=== PATIENT | female | born 1995 | race Two or more races ===

== ENCOUNTER 2019-10-21 15:57 | Emergency (ER) | payer MEDICAID ==
[~2019-10-21] VITALS: Ht 154.9 cm; Wt 90.9 kg
[2019-10-21 17:35] VITALS: BP 120/63
== END 2019-10-21 17:42 | disposition home or self-care (01) ==
LOC: EMS 15:57
DX: F31.9 Bipolar disorder, unspecified (principal); F12.90 Cannabis use, unspecified, uncomplicated

== ENCOUNTER 2019-10-24 12:59 | Inpatient (IN) | payer MEDICAID ==
[~2019-10-24] VITALS: Ht 149.9 cm; Wt 98.6 kg
[2019-10-24 13:15] VITALS: BP 122/65
[2019-10-24] MEDS ORDERED: ZOLPIDEM TARTRATE 10 MG TABLET PO PRN (14:45)
[2019-10-24] MEDS ORDERED: MAG HYDROX/AL HYDROX/SIMETH ES 30 ML SUSPENSION UDCUP PO PRN (14:45)
[2019-10-24] MEDS ORDERED: OLANZapine 5 MG RAPDIS TABLET PO PRN (14:45)
[2019-10-24] MEDS ORDERED: TUBERCULIN, PURIFIED PROTEIN DERIVATIVE 5 TU/0.1 ML SYRINGE ID ONE (14:45)
[2019-10-24] MEDS ORDERED: GuaiFENesin/D-METHORPHAN [SUGAR-FREE] 200-20MG/10 ML SYRUP UDCUP PO PRN (14:45)
[2019-10-24] MEDS ORDERED: PROMETHAZINE HCL 25 MG TABLET PO PRN (14:45)
[2019-10-24] MEDS ORDERED: MAGNESIUM HYDROXIDE SUSPENSION 30 ML UDCUP PO PRN (14:45)
[2019-10-24] MEDS ORDERED: LOPERAMIDE HCL 2 MG CAPSULE PO PRN (14:45)
[2019-10-24] MEDS ORDERED: ACETAMINOPHEN 325 MG TABLET PO PRN (14:45)
[2019-10-24] MEDS ORDERED: HydrOXYzine PAMOATE 50 MG CAPSULE PO PRN (14:45)
[2019-10-24 14:55] VITALS: BP 105/85
[2019-10-24 15:06] VITALS: BP 105/85
[2019-10-24] MEDS ORDERED: LORazepam 2 MG/ML VIAL ONE (15:24)
[2019-10-24] MEDS ORDERED: DiphenhydrAMINE HCL 50 MG/ML VIAL ONE (15:24)
[2019-10-24] MEDS ORDERED: HALOPERIDOL LACTATE 5 MG/ML VIAL ONE (15:24)
[2019-10-24] MEDS ORDERED: LORazepam 2 MG/ML VIAL IM ONE (15:30)
[2019-10-24] MEDS ORDERED: HALOPERIDOL LACTATE 5 MG/ML VIAL IM ONE (15:30)
[2019-10-24] MEDS ORDERED: DiphenhydrAMINE HCL 50 MG/ML VIAL IM ONE (15:30)
[2019-10-24] MEDS: THIAMINE HCL 100 MG TABLET PO SCH (16:34)
[2019-10-24] MEDS: OLANZapine 10 MG RAPDIS TABLET PO SCH (21:00)
[2019-10-25 05:27] VITALS: BP 128/62
[2019-10-25 05:32] VITALS: BP 124/67
[2019-10-25] MEDS: LORazepam 2 MG TABLET PO PRN (08:07)
[2019-10-25] MEDS: THIAMINE HCL 100 MG TABLET PO SCH ×2 (08:07→16:33)
[2019-10-25] MEDS: FLUoxetine HCL 20 MG CAPSULE PO SCH (08:08)
[2019-10-25] MEDS: FOLIC ACID 1 MG TABLET PO SCH (08:08)
[2019-10-25] MEDS: MULTIVITAMINS WITH MINERALS, THERAPEUTIC TABLET PO SCH (08:08)
[2019-10-25 08:14] VITALS: BP 125/65
[2019-10-25 08:17] LABS: APPEARANCE,URINE CLOUDY (CLEAR); BILIRUBIN,URINE NEGATIVE (NEGATIVE); GLUCOSE, URINE (UA) NEGATIVE (NEGATIVE); KETONES,URINE TRACE mg/dL (NEGATIVE); LEUKOCYTE ESTERASE ,URINE NEGATIVE (NEGATIVE); NITRATE,URINE NEGATIVE (NEGATIVE); OCCULT BLOOD,URINE NEGATIVE (NEGATIVE); PROTEIN,URINE NEGATIVE (NEGATIVE); UROBILINOGEN,URINE 0.2 mg/dL (<=1.0)
[2019-10-25 08:18] LABS: BASOPHILS % (AUTO) 0.9 % (0.0-2.0); EOSINOPHILS % (AUTO) 4.8 % (1.0-6.0); HEMATOCRIT 42.5 % (36-46); HEMOGLOBIN 14.7 g/dL (12.0-16.0); LYMPHOCYTES # (AUTO) 2.4 K/uL (1.0-4.8); MEAN CORPUSCULAR HEMOGLOBIN 29.2 pg (26.0-34.0); MEAN CORPUSCULAR HGB CONC 34.6 G/dL (31.0-37.0); MEAN CORPUSCULAR VOLUME 84 fL (80-100); MONOCYTES # (AUTO) 0.6 K/uL (0.1-1.0); MONOCYTES % (AUTO) 6.8 % (2.0-9.0); NEUTROPHILS # (AUTO) 4.9 K/uL (1.8-7.7); NEUTROPHILS % (AUTO) 58.5 % (40.0-70.0); PLATELET COUNT (AUTO) 338 K/uL (150-450); RED BLOOD CELL COUNT(AUTO) 5.04 MIL/uL (4.00-5.20); RED CELL DISTRIBUTION WIDTH 15.2 % (11.5-14.5)
[2019-10-25 08:24] LABS: AMPHET/METH SCREEN,URINE NEGATIVE (NEGATIVE); BARBITURATE SCREEN, URINE NEGATIVE (NEGATIVE); BENZODIAZEPINES SCREEN,URINE NEGATIVE (NEGATIVE); CANNABINOID SCREEN,URINE POSITIVE (NEGATIVE); COCAINE SCREEN,URINE NEGATIVE (NEGATIVE); METHADONE SCREEN, URINE NEGATIVE (NEGATIVE); OPIATE SCREEN,URINE NEGATIVE (NEGATIVE); PHENCYCLIDINE SCREEN,URINE NEGATIVE (NEGATIVE)
[2019-10-25 08:33] LABS: HEMOGLOBIN A1C 5.5 % (3.8-5.6)
[2019-10-25 08:56] LABS: ALANINE AMINOTRANSFERASE 28 U/L (12-78); ALBUMIN 3.9 g/dL (3.4-5.0); ALKALINE PHOSPHATASE 58 U/L (46-116); ANION GAP 6 mmol/L (8-16); ASPARTATE AMINOTRANSFERASE 15 U/L (15-37); BILIRUBIN,TOTAL 0.6 mg/dL (0.1-1.0); CALCIUM, TOTAL 9.4 mg/dL (8.8-10.5); CARBON DIOXIDE 29 mmol/L (22-29); CHLORIDE 102 mmol/L (98-107); CHOL/HDL RATIO 2.1 (3.9-5.7); CHOLESTEROL 117 mg/dL (131-200); CREATININE 0.71 mg/dL (0.60-1.30); FREE T4 (FREE THYROXINE) 1.26 ng/dL (0.76-1.46); GLOMERULAR FILTR. RATE CALC > 60 mL/min (>60); GLUCOSE,RANDOM 85 mg/dL (70-110); HCG,QUANTITATIVE < 1 mIU/mL (0-6); HDL CHOLESTEROL 55 mg/dL (40-60); LDL CHOL (CALC.) 58 mg/dL (0-130); POTASSIUM 3.7 mmol/L (3.5-5.1); SODIUM SERUM 137 mmol/L (136-145); TOTAL PROTEIN, SERUM 8.1 g/dL (6.4-8.2); TRIGLYCERIDES 20 mg/dL (15-150); UREA NITROGEN, BLOOD 8 mg/dL (7-18)
[2019-10-25 16:27] VITALS: BP 106/65
[2019-10-25] MEDS: OLANZapine 10 MG RAPDIS TABLET PO SCH (20:38)
[2019-10-26 04:02] VITALS: BP 111/60
[2019-10-26] MEDS ORDERED: FLUO-191 PO ×2 (06:21→17:37)
[2019-10-26] MEDS ORDERED: NALT50TA6 PO (06:21)
[2019-10-26] MEDS ORDERED: OLAN10TA6 PO (06:22)
[2019-10-26 08:15] VITALS: BP 122/71
[2019-10-26] MEDS: NALTREXONE HCL 50 MG TABLET PO SCH (09:31)
[2019-10-26] MEDS: THIAMINE HCL 100 MG TABLET PO SCH ×2 (09:31→16:42)
[2019-10-26] MEDS: FLUoxetine HCL 20 MG CAPSULE PO SCH (09:31)
[2019-10-26] MEDS: MULTIVITAMINS WITH MINERALS, THERAPEUTIC TABLET PO SCH (09:31)
[2019-10-26] MEDS: FOLIC ACID 1 MG TABLET PO SCH (09:31)
[2019-10-26 16:33] VITALS: BP 127/68
[2019-10-26] MEDS ORDERED: OLAN10TA22 PO (17:37)
[2019-10-26] MEDS ORDERED: NALT50TA PO (17:37)
[2019-10-26] MEDS: LORazepam 2 MG TABLET PO PRN (20:43)
[2019-10-26] MEDS ORDERED: OLANZapine 10 MG RAPDIS TABLET PO SCH (21:00)
[2019-10-27 05:06] VITALS: BP 115/62
[2019-10-27 08:09] VITALS: BP 115/78
[2019-10-27] MEDS: THIAMINE HCL 100 MG TABLET PO SCH (08:13)
[2019-10-27] MEDS: NALTREXONE HCL 50 MG TABLET PO SCH (08:13)
[2019-10-27] MEDS: FOLIC ACID 1 MG TABLET PO SCH (08:17)
[2019-10-27] MEDS: FLUoxetine HCL 20 MG CAPSULE PO SCH (08:17)
[2019-10-27] MEDS: MULTIVITAMINS WITH MINERALS, THERAPEUTIC TABLET PO SCH (08:17)
== END 2019-10-27 20:52 | disposition home or self-care (01) | DRG 750 ==
LOC: B3A 14:31
PROVIDERS: ADMIT Psychiatry & Neurology Psychiatry; ATTEND Psychiatry & Neurology Psychiatry
DX: F20.9 Schizophrenia, unspecified (principal); R45.851 Suicidal ideations; Z59.0 Homelessness; F17.210 Nicotine dependence, cigarettes, uncomplicated; Z81.8 Family history of other mental and behavioral disorders; Z91.19 Patient's noncompliance with other medical treatment and regimen
CPT/HCPCS: 80307; 83036; 84439; 84443; 86592; J1200; J1630; J2060

== ENCOUNTER 2023-05-22 10:57 | Inpatient (IN) | payer MEDICAID ==
[~2023-05-22] VITALS: Ht 165.1 cm; Wt 95.7 kg
[~2023-05-22 10:57] MED LIST: FLUO-177 PO; NALT50TA PO; OLAN10TA22 PO
[2023-05-22] MEDS ORDERED: DiphenhydrAMINE HCL 50 MG/ML VIAL ONE (11:14)
[2023-05-22] MEDS ORDERED: HALOPERIDOL LACTATE 5 MG/ML VIAL ONE (11:14)
[2023-05-22] MEDS ORDERED: LORazepam 2 MG/ML VIAL ONE (11:14)
[2023-05-22] MEDS ORDERED: ZOLPIDEM TARTRATE 10 MG TABLET PO PRN (11:15)
[2023-05-22] MEDS ORDERED: HALOPERIDOL 5 MG TABLET PO PRN (11:15)
[2023-05-22] MEDS ORDERED: NICOTINE 14 MG/24 HOUR PATCH TD PRN (12:30)
[2023-05-22] MEDS ORDERED: CloNIDine HCL 0.1 MG TABLET PO PRN (12:30)
[2023-05-22] MEDS ORDERED: PNEUMOCOCCAL VACCINE POLYVALENT 0.5 ML SYRINGE [PPSV23] IM. ONE (12:30)
[2023-05-22] MEDS ORDERED: MAG HYDROX/AL HYDROX/SIMETH ES 30 ML SUSPENSION UDCUP PO PRN (12:30)
[2023-05-22] MEDS ORDERED: GuaiFENesin/D-METHORPHAN [SUGAR-FREE] 200-20MG/10 ML SYRUP UDCUP PO PRN (12:30)
[2023-05-22] MEDS ORDERED: DOCUSATE SODIUM 100 MG CAPSULE PO PRN (12:30)
[2023-05-22] MEDS ORDERED: LOPERAMIDE HCL 2 MG CAPSULE PO PRN (12:30)
[2023-05-22] MEDS ORDERED: MAGNESIUM HYDROXIDE SUSPENSION 30 ML UDCUP PO PRN (12:30)
[2023-05-22] MEDS ORDERED: ONDANSETRON HCL 4 MG TABLET PO PRN (12:30)
[2023-05-22] MEDS ORDERED: INFLUENZA VIRUS VACCINE QVS 2023-24 (6MO+)/PF 60 MCG/0.5 ML SYRINGE IM. ONE (12:30)
[2023-05-22] MEDS ORDERED: ALBUTEROL SULFATE HFA 90 MCG/PUFF 8 GM INHALER IH PRN (12:30)
[2023-05-22] MEDS ORDERED: PETROLATUM,WHITE 28 GM JELLY TP PRN (12:30)
[2023-05-22] MEDS ORDERED: ACETAMINOPHEN 325 MG TABLET PO PRN (12:30)
[2023-05-22 12:58] VITALS: BP 115/62; PULSE 73; RESP 18; TEMP 97.8; O2SAT 97
[2023-05-22] MEDS ORDERED: LORazepam 2 MG/ML VIAL IM ONE (13:00)
[2023-05-22] MEDS ORDERED: HALOPERIDOL LACTATE 5 MG/ML VIAL IM ONE (13:00)
[2023-05-22] MEDS ORDERED: DiphenhydrAMINE HCL 50 MG/ML VIAL IM ONE (13:00)
[2023-05-22 16:01] LABS: GLUCOMETER DEV NAME(LOC) POC.BV; POC SARS-COV2 AG, FIA NEGATIVE (NEGATIVE)
[2023-05-22 20:42] VITALS: RESP 17
[2023-05-22] MEDS: OLANZapine 10 MG RAPDIS TABLET PO SCH (21:00)
[2023-05-23 08:24] LABS: BASOPHILS % (AUTO) 0.7 % (0.0-2.0); EOSINOPHILS % (AUTO) 3.4 % (1.0-6.0); HEMATOCRIT 40.8 % (36-46); HEMOGLOBIN 13.5 g/dL (12.0-16.0); LYMPHOCYTES # (AUTO) 2.3 K/uL (1.0-4.8); LYMPHOCYTES % (AUTO) 26.2 % (22.0-44.0); MEAN CORPUSCULAR HEMOGLOBIN 27.8 pg (26.0-34.0); MEAN CORPUSCULAR HGB CONC 33.1 G/dL (31.0-37.0); MEAN CORPUSCULAR VOLUME 84 fL (80-100); MONOCYTES # (AUTO) 0.6 K/uL (0.1-1.0); MONOCYTES % (AUTO) 7.4 % (2.0-9.0); NEUTROPHILS # (AUTO) 5.4 K/uL (1.8-7.7); NEUTROPHILS % (AUTO) 62.3 % (40.0-70.0); PLATELET COUNT (AUTO) 278 K/uL (150-450); RED BLOOD CELL COUNT(AUTO) 4.86 MIL/uL (4.00-5.20); RED CELL DISTRIBUTION WIDTH 15.5 % (11.5-14.5); WHITE BLOOD COUNT (AUTO) 8.7 K/uL (4.5-11.0)
[2023-05-23] MEDS: LORazepam 2 MG TABLET PO PRN (08:25)
[2023-05-23] MEDS: FLUoxetine HCL 20 MG CAPSULE PO SCH (08:26)
[2023-05-23 08:35] LABS: HEMOGLOBIN A1C 5.1 % (3.8-5.6)
[2023-05-23 08:53] LABS: ALANINE AMINOTRANSFERASE 36 U/L (12-78); ALBUMIN 3.8 g/dL (3.4-5.0); ALKALINE PHOSPHATASE 58 U/L (46-116); ANION GAP 6 mmol/L (8-16); ASPARTATE AMINOTRANSFERASE 23 U/L (15-37); BILIRUBIN,TOTAL 0.7 mg/dL (0.1-1.0); CALCIUM, TOTAL 9.4 mg/dL (8.8-10.5); CARBON DIOXIDE 29 mmol/L (22-29); CHLORIDE 105 mmol/L (98-107); CHOL/HDL RATIO 2.3 (3.9-5.7); CHOLESTEROL 122 mg/dL (131-200); CREATININE 0.77 mg/dL (0.60-1.30); FREE T4 (FREE THYROXINE) 1.08 ng/dL (0.76-1.46); GLOMERULAR FILTR. RATE CALC > 60 mL/min (>60); GLUCOSE,RANDOM 77 mg/dL (70-110); HCG,QUANTITATIVE < 1 mIU/mL (0-6); HDL CHOLESTEROL 53 mg/dL (40-60); LDL CHOL (CALC.) 60 mg/dL (0-130); POTASSIUM 3.4 mmol/L (3.5-5.1); SODIUM SERUM 140 mmol/L (136-145); THYROID STIMULATING HORMONE 1.41 uIU/mL (0.36-3.74); TOTAL PROTEIN, SERUM 7.6 g/dL (6.4-8.2); TRIGLYCERIDES 43 mg/dL (15-150); UREA NITROGEN, BLOOD 8 mg/dL (7-18)
[2023-05-23 09:36] VITALS: BP 123/66; PULSE 96; RESP 20; TEMP 98
[2023-05-23] MEDS ORDERED: POTASSIUM CHLORIDE 20 MEQ ER TABLET PO ONE (10:30)
[2023-05-23 19:35] VITALS: BP 116/71; PULSE 82; RESP 18
[2023-05-23] MEDS: IBUPROFEN 400 MG TABLET PO PRN (19:40)
[2023-05-23] MEDS: OLANZapine 10 MG RAPDIS TABLET PO SCH (20:28)
[2023-05-23 20:40] VITALS: RESP 18
[2023-05-23 21:30] VITALS: BP 114/70; PULSE 75; RESP 18; TEMP 98; O2SAT 95
[2023-05-24 08:00] VITALS: BP 108/62; PULSE 89; RESP 18; TEMP 97
[2023-05-24 08:06] LABS: APPEARANCE,URINE TURBID (CLEAR); BILIRUBIN,URINE NEGATIVE (NEGATIVE); COLOR,URINE YELLOW (YELLOW); GLUCOSE, URINE (UA) NEGATIVE (NEGATIVE); KETONES,URINE NEGATIVE (NEGATIVE); LEUKOCYTE ESTERASE ,URINE NEGATIVE (NEGATIVE); NITRATE,URINE NEGATIVE (NEGATIVE); OCCULT BLOOD,URINE NEGATIVE (NEGATIVE); PROTEIN,URINE 30-70 mg/dL (NEGATIVE); SPECIFIC GRAVITIY, URINE 1.028 (1.003-1.030)
[2023-05-24 08:10] LABS: ANION GAP 4 mmol/L (8-16); CALCIUM, TOTAL 8.9 mg/dL (8.8-10.5); CARBON DIOXIDE 30 mmol/L (22-29); CHLORIDE 107 mmol/L (98-107); CREATININE 0.69 mg/dL (0.60-1.30); GLOMERULAR FILTR. RATE CALC > 60 mL/min (>60); GLUCOSE,RANDOM 85 mg/dL (70-110); POTASSIUM 4.1 mmol/L (3.5-5.1); SODIUM SERUM 141 mmol/L (136-145); UREA NITROGEN, BLOOD 11 mg/dL (7-18)
[2023-05-24 08:12] LABS: ALCOHOL, URINE DRUG SCREEN NEGATIVE (NEGATIVE); AMPHET/METH SCREEN,URINE NEGATIVE (NEGATIVE); BARBITURATE SCREEN, URINE NEGATIVE (NEGATIVE); BENZODIAZEPINES SCREEN,URINE NEGATIVE (NEGATIVE); CANNABINOID SCREEN,URINE POSITIVE (NEGATIVE); COCAINE SCREEN,URINE NEGATIVE (NEGATIVE); METHADONE SCREEN, URINE NEGATIVE (NEGATIVE); OPIATE SCREEN,URINE NEGATIVE (NEGATIVE); PHENCYCLIDINE SCREEN,URINE NEGATIVE (NEGATIVE)
[2023-05-24] MEDS: FLUoxetine HCL 20 MG CAPSULE PO SCH (08:35)
[2023-05-24 08:38] VITALS: RESP 18
[2023-05-24] MEDS: IBUPROFEN 400 MG TABLET PO PRN ×2 (08:38→18:16)
[2023-05-24] MEDS: LORazepam 2 MG TABLET PO PRN ×2 (08:38→20:37)
[2023-05-24 09:38] VITALS: RESP 18
[2023-05-24] MEDS ORDERED: BENZOCAINE/MENTHOL/ZINC CL 20% 11.9 GM GEL TP PRN (12:30)
[2023-05-24] MEDS: BENZOCAINE/MENTHOL/ZINC CL 20% 11.9 GM GEL TP PRN ×2 (17:10→20:39)
[2023-05-24 18:16] VITALS: RESP 18
[2023-05-24 19:10] VITALS: RESP 18
[2023-05-24] MEDS: OLANZapine 10 MG RAPDIS TABLET PO SCH (20:39)
[2023-05-24 20:54] VITALS: BP 123/79; PULSE 60; RESP 17; TEMP 97.4; O2SAT 98
[2023-05-25] MEDS: FLUoxetine HCL 20 MG CAPSULE PO SCH (08:22)
[2023-05-25 09:41] VITALS: BP 101/77; PULSE 76; RESP 18; TEMP 97.8; O2SAT 99
[2023-05-25] MEDS: IBUPROFEN 400 MG TABLET PO PRN (09:43)
[2023-05-26 05:07] LABS: HEPATITIS C AB (EIA) Non Reactive (Non Reactive)
== END 2023-05-25 15:45 | disposition home or self-care (01) | DRG 750 ==
LOC: B3A 11:10
PROVIDERS: ADMIT Psychiatry & Neurology Psychiatry; ATTEND Psychiatry & Neurology Psychiatry
DX: F25.1 Schizoaffective disorder, depressive type (principal); R45.851 Suicidal ideations; E66.9 Obesity, unspecified; F32.A Depression, unspecified; Z20.822 Contact with and (suspected) exposure to COVID-19; E87.6 Hypokalemia; Z79.899 Other long term (current) drug therapy; Z68.35 Body mass index [BMI] 35.0-35.9, adult
CPT/HCPCS: 80048; 80053; 80061; 80307; 81003; 83036; 84439; 84443; 84702; 85025; 86592; 86803; 87340; J1200; J1630; J2060

== ENCOUNTER 2024-05-11 15:01 | Inpatient (IN) | payer MEDICAID ==
[~2024-05-11 15:01] MED LIST changes: -OLAN10TA74 PO
[2024-05-11 15:45] VITALS: BP 108/77; PULSE 69; RESP 18; TEMP 98; O2SAT 98
[2024-05-11] MEDS ORDERED: HALOPERIDOL 5 MG TABLET PO PRN (21:30)
[2024-05-12 02:06] VITALS: BP 121/65; PULSE 66; RESP 18; TEMP 97.8
[2024-05-12] MEDS: LORazepam 2 MG TABLET PO PRN (02:16)
[2024-05-12] MEDS: ZOLPIDEM TARTRATE 10 MG TABLET PO PRN (02:16)
[2024-05-12 08:32] VITALS: BP 112/70; PULSE 75; RESP 17; TEMP 97.8; O2SAT 98
[2024-05-12] MEDS ORDERED: PETROLATUM,WHITE 28 GM JELLY TP PRN (09:15)
[2024-05-12] MEDS ORDERED: ALBUTEROL SULFATE HFA 90 MCG/PUFF 8 GM INHALER IH PRN (09:15)
[2024-05-12] MEDS ORDERED: BENZOCAINE/MENTHOL LOZENGE PO PRN (09:15)
[2024-05-12] MEDS ORDERED: BACITRACIN 28 GM OINTMENT TP PRN (09:15)
[2024-05-12] MEDS ORDERED: MAG HYDROX/ALUMINUM HYD/SIMETH ES 30 ML SUSPENSION UDCUP PO PRN (09:15)
[2024-05-12] MEDS ORDERED: OMEPRAZOLE 20 MG CAPSULE PO PRN (09:15)
[2024-05-12] MEDS ORDERED: MAGNESIUM HYDROXIDE SUSPENSION 30 ML UDCUP PO PRN (09:15)
[2024-05-12] MEDS ORDERED: ACETAMINOPHEN 325 MG TABLET PO PRN (09:15)
[2024-05-12] MEDS ORDERED: DOCUSATE SODIUM 100 MG CAPSULE PO PRN (09:15)
[2024-05-12] MEDS ORDERED: CloNIDine HCL 0.1 MG TABLET PO PRN (09:15)
[2024-05-12] MEDS ORDERED: LOPERAMIDE HCL 2 MG CAPSULE PO PRN (09:15)
[2024-05-12 09:25] LABS: ALANINE AMINOTRANSFERASE 21 U/L (12-78); ALBUMIN 3.4 g/dL (3.4-5.0); ALKALINE PHOSPHATASE 46 U/L (46-116); ANION GAP 7 mmol/L (8-16); ASPARTATE AMINOTRANSFERASE 25 U/L (15-37); BILIRUBIN,TOTAL 0.6 mg/dL (0.1-1.0); CALCIUM, TOTAL 8.9 mg/dL (8.8-10.5); CARBON DIOXIDE 28 mmol/L (22-29); CHLORIDE 104 mmol/L (98-107); CHOL/HDL RATIO 1.7 (3.9-5.7); CHOLESTEROL 92 mg/dL (131-200); CREATININE 0.65 mg/dL (0.60-1.30); FREE T4 (FREE THYROXINE) 0.97 ng/dL (0.76-1.46); GLOMERULAR FILTR. RATE CALC > 60 mL/min (>60); GLUCOSE,RANDOM 84 mg/dL (70-110); HCG,QUANTITATIVE < 1 mIU/mL (0-6); HDL CHOLESTEROL 53 mg/dL (40-60); LDL CHOL (CALC.) 32 mg/dL (0-130); POTASSIUM 4.2 mmol/L (3.5-5.1); SODIUM SERUM 139 mmol/L (136-145); THYROID STIMULATING HORMONE 1.45 uIU/mL (0.36-3.74); TRIGLYCERIDES 33 mg/dL (15-150); UREA NITROGEN, BLOOD 7 mg/dL (7-18)
[2024-05-12] MEDS: ONDANSETRON 4 MG TABLET PO PRN (09:29)
[2024-05-12] MEDS: OLANZapine 10 MG TABLET PO SCH (20:35)
[2024-05-12 20:53] VITALS: BP 119/62; PULSE 71; RESP 17; TEMP 97.6; O2SAT 98
[2024-05-13] MEDS: FLUoxetine HCL 20 MG CAPSULE PO SCH (08:25)
[2024-05-13 08:28] VITALS: BP 122/84; PULSE 80; RESP 18; TEMP 97.6; O2SAT 98
[2024-05-13 08:34] LABS: BASOPHILS % (AUTO) 0.5 % (0.0-2.0); EOSINOPHILS % (AUTO) 3.8 % (1.0-6.0); HEMATOCRIT 40.6 % (36-46); HEMOGLOBIN 13.7 g/dL (12.0-16.0); LYMPHOCYTES # (AUTO) 3.5 K/uL (1.0-4.8); LYMPHOCYTES % (AUTO) 35.5 % (22.0-44.0); MEAN CORPUSCULAR HEMOGLOBIN 29.9 pg (26.0-34.0); MEAN CORPUSCULAR HGB CONC 33.7 G/dL (31.0-37.0); MEAN CORPUSCULAR VOLUME 89 fL (80-100); MONOCYTES # (AUTO) 0.8 K/uL (0.1-1.0); MONOCYTES % (AUTO) 8.2 % (2.0-9.0); NEUTROPHILS # (AUTO) 5.1 K/uL (1.8-7.7); PLATELET COUNT (AUTO) 259 K/uL (150-450); RED BLOOD CELL COUNT(AUTO) 4.58 MIL/uL (4.00-5.20); RED CELL DISTRIBUTION WIDTH 14.1 % (11.5-14.5); WHITE BLOOD COUNT (AUTO) 9.8 K/uL (4.5-11.0)
[2024-05-13 08:39] LABS: APPEARANCE,URINE CLEAR (CLEAR); BILIRUBIN,URINE NEGATIVE (NEGATIVE); COLOR,URINE LIGHT YELLOW (YELLOW); GLUCOSE, URINE (UA) NEGATIVE (NEGATIVE); KETONES,URINE NEGATIVE (NEGATIVE); LEUKOCYTE ESTERASE ,URINE NEGATIVE (NEGATIVE); NITRATE,URINE NEGATIVE (NEGATIVE); OCCULT BLOOD,URINE NEGATIVE (NEGATIVE); PROTEIN,URINE NEGATIVE (NEGATIVE); SPECIFIC GRAVITIY, URINE 1.009 (1.003-1.030); UROBILINOGEN,URINE <=1.0 mg/dL (<=1.0)
[2024-05-13 20:22] VITALS: BP 120/82; PULSE 82; RESP 18; TEMP 97.8
[2024-05-14 08:25] VITALS: BP 105/66; PULSE 90; RESP 18; TEMP 98; O2SAT 100
[2024-05-14] MEDS: IBUPROFEN 600 MG TABLET PO PRN (08:30)
[2024-05-14] MEDS ORDERED: OLAN10TA74 PO (11:29)
== END 2024-05-14 14:57 | disposition home or self-care (01) | DRG 750 ==
LOC: B3A 21:24
PROVIDERS: ADMIT Psychiatry & Neurology Psychiatry; ATTEND Psychiatry & Neurology Psychiatry
DX: F20.9 Schizophrenia, unspecified (principal); F12.90 Cannabis use, unspecified, uncomplicated; F41.9 Anxiety disorder, unspecified; G47.00 Insomnia, unspecified; F94.0 Selective mutism; K59.00 Constipation, unspecified; Z79.899 Other long term (current) drug therapy
CPT/HCPCS: 80053; 80061; 81003; 84439; 84443; 84702; 85025; 86592; Q0162

== ENCOUNTER → 2024-05-11 | Emergency (ER) | payer MEDICAID ==
[~2024-05-11] VITALS: Ht 149.9 cm; Wt 90.9 kg
[~2024-05-11] MED LIST changes: -NALT50TA PO; +OLAN10TA74 PO
[2024-05-11 17:58] VITALS: TEMP 98.2
[2024-05-11 18:18] LABS: BASOPHILS % (AUTO) 0.6 % (0.0-2.0); EOSINOPHILS % (AUTO) 1.3 % (1.0-6.0); HEMATOCRIT 42.1 % (36-46); HEMOGLOBIN 13.7 g/dL (12.0-16.0); LYMPHOCYTES # (AUTO) 3.3 K/uL (1.0-4.8); LYMPHOCYTES % (AUTO) 28.8 % (22.0-44.0); MEAN CORPUSCULAR HEMOGLOBIN 28.8 pg (26.0-34.0); MEAN CORPUSCULAR HGB CONC 32.5 G/dL (31.0-37.0); MEAN CORPUSCULAR VOLUME 89 fL (80-100); MONOCYTES # (AUTO) 0.8 K/uL (0.1-1.0); MONOCYTES % (AUTO) 6.7 % (2.0-9.0); NEUTROPHILS # (AUTO) 7.2 K/uL (1.8-7.7); NEUTROPHILS % (AUTO) 62.6 % (40.0-70.0); PLATELET COUNT (AUTO) 304 K/uL (150-450); RED BLOOD CELL COUNT(AUTO) 4.75 MIL/uL (4.00-5.20); RED CELL DISTRIBUTION WIDTH 14.3 % (11.5-14.5); WHITE BLOOD COUNT (AUTO) 11.5 K/uL (4.5-11.0)
[2024-05-11 18:26] LABS: ANION GAP 9 mmol/L (8-16); CALCIUM, TOTAL 9.4 mg/dL (8.8-10.5); CARBON DIOXIDE 27 mmol/L (22-29); CHLORIDE 102 mmol/L (98-107); CREATININE 0.67 mg/dL (0.60-1.30); GLOMERULAR FILTR. RATE CALC > 60 mL/min (>60); GLUCOSE,RANDOM 98 mg/dL (70-110); POTASSIUM 3.9 mmol/L (3.5-5.1); SODIUM SERUM 138 mmol/L (136-145); UREA NITROGEN, BLOOD 5 mg/dL (7-18)
[2024-05-11 18:35] LABS: ALCOHOL, BLOOD (SERUM) < 3 mg/dL (0-10)
[2024-05-11 18:48] LABS: PH,URINE DRUG SCREEN 6.5 (5.0-8.0)
[2024-05-11 18:55] LABS: ALCOHOL, URINE DRUG SCREEN NEGATIVE (NEGATIVE); AMPHET/METH SCREEN,URINE NEGATIVE (NEGATIVE); BARBITURATE SCREEN, URINE NEGATIVE (NEGATIVE); BENZODIAZEPINES SCREEN,URINE NEGATIVE (NEGATIVE); CANNABINOID SCREEN,URINE POSITIVE (NEGATIVE); COCAINE SCREEN,URINE NEGATIVE (NEGATIVE); METHADONE SCREEN, URINE NEGATIVE (NEGATIVE); OPIATE SCREEN,URINE NEGATIVE (NEGATIVE); PHENCYCLIDINE SCREEN,URINE NEGATIVE (NEGATIVE)
[2024-05-11 20:41] LABS: COVID AG,FIA SOURCE NASAL SWAB
[2024-05-11 20:59] LABS: SARS-COV2 (COVID) ANTIGEN,FIA Negative (Negative)
[2024-05-11 22:09] VITALS: BP 129/57; PULSE 79; RESP 18; O2SAT 99
== END | disposition still patient (30) ==
LOC: EMS 16:45
DX: F25.9 Schizoaffective disorder, unspecified (principal); F12.90 Cannabis use, unspecified, uncomplicated; F31.9 Bipolar disorder, unspecified; Z98.890 Other specified postprocedural states; Z20.822 Contact with and (suspected) exposure to COVID-19
CPT/HCPCS: 99285; 87426; 80048; 84703; 85025; 36415; 80307; G0480